=== PATIENT | female | born 1990 | race Caucasian/White ===

== ENCOUNTER 2017-10-07 15:40 | Emergency (ER) | payer OTHER ==
[2017-10-07 15:53] VITALS: BP 113/60
[2017-10-07] MEDS ORDERED: Ondansetron ODT TAB* 4 MG SL ONE (16:30)
--- NOTE | 2017-10-07 16:43 | UC ---
Respiratory Complaint HPI - HPI Summary HPI Summary: Patient is an otherwise healthy 27-year-old female presenting to the ED with chief complaint of cough and congestion 1 week. She also endorses some nausea , without vomiting 2 days. Endorses fever, but has not taken her temperature. Denies any sweats or chills. Denies any weakness. She takes no medications on a daily basis and has not taken anything [id number] for relief. Symptoms are aggravated with nothing and relieved with nothing. She has early satiety and decreased by mouth intake. - History of Current Complaint Chief Complaint: UCRespiratory Stated Complaint: RESP COMPLAINT Time Seen by Provider: 10/07/17 16:02 Hx Obtained From: Patient Hx Last Menstrual Period: Sep 09, 2017 ?: No Onset/Duration: Sudden Onset Timing: Constant Severity Initially: Mild Severity Currently: Mild Pain Intensity: 0 Pain Scale Used: 0-10 Numeric Character: Cough: Nonproductive Associated Signs And Symptoms: Positive: Negative - Risk Factors Pulmonary Embolism Risk Factors: Negative Cardiac Risk Factors: Negative Pseudomonas Risk Factors: Negative Tuberculosis Risk Factors: Negative - Allergies/Home Medications Allergies/Adverse Reactions: Allergies Allergy/AdvReac Type Severity Reaction Status Date / Time No Known Allergies Allergy Verified 10/07/17 15:53 Home Medications: Home Medications Venlafaxine EXT RELEASE CAP* [Effexor Xr CAP*] 1 tab PO DAILY 10/07/17 [History Confirmed 10/07/17] PMH/Surg Hx/FS Hx/Imm Hx Previously Healthy: Yes - Surgical History Surgical History: Yes Surgery Procedure, Year, and Place: COSMETIC EAR SURGERY FROM A DOG BITE - Family History Known Family History: Positive: None - noncontributory - Social History Occupation: Employed Full-time Lives: With Family Alcohol Use: Occasionally Alcohol Amount: Glass of wine occassionally Substance Use Type: None Substance Use Comment - Amount & Last Used: Last used substances 2012 Smoking Status (MU): Current Every Day Smoker Type: Cigarettes Amount Used/How Often: /4 PPD Household Exposure Type: Cigarettes - Immunization History Most Recent Influenza Vaccination: 03/2014 Most Recent Tetanus Shot: 02/20/14 Most Recent Pneumonia Vaccination: n/a Review of Systems Constitutional: Fever Skin: Negative ENT: Negative Respiratory: Cough Cardiovascular: Negative Gastrointestinal: Nausea Motor: Negative Neurovascular: Negative Musculoskeletal: Negative Neurological: Negative Psychological: Negative Is Patient Immunocompromised?: No All Other Systems Reviewed And Are Negative: Yes Physical Exam Triage Information Reviewed: Yes Appearance: Well-Appearing, Well-Nourished Vital Signs: Initial Vital Signs Temp 97.4 F 10/07/17 15:50 Pulse 56 10/07/17 15:50 Resp 18 10/07/17 15:50 BP 113/60 10/07/17 15:50 Pulse Ox 96 10/07/17 15:50 Vital Signs Reviewed: Yes Eye Exam: Normal Eyes: Positive: Conjunctiva Clear ENT Exam: Normal ENT: Positive: Normal ENT inspection Neck exam: Normal Neck: Positive: Supple, No Lymphadenopathy Respiratory: Positive: Wheezing Cardiovascular Exam: Normal Cardiovascular: Positive: RRR Neurological Exam: Normal Neurological: Positive: Alert Psychological: Positive: Normal Response To Family Skin Exam: Normal UC Diagnostic Evaluation - Laboratory O2 Sat by Pulse Oximetry: 96 Respiratory Course/Dx - Course Course Of Treatment: During the course of treatment, the patient is evaluated for cough and congestion and nausea without vomiting. She endorses a probable fever, but has not taken her temperature. Denies any sweats or chills. Influenza swab obtained. Chest x-ray obtained. Lungs have bilateral wheezes, but however patient is a smoker. She denies any shortness of breath. Xray with no acute findings. Flu negative. She is given zofran with relief. Patient is prescribed Zofran and note given for work. - Differential Dx/Diagnosis Provider Diagnoses: Nausea, URI Discharge - Discharge Plan Condition: Stable Disposition: HOME Prescriptions: Ondansetron ODT TAB* [Zofran 4 MG Odt TAB*] 4 mg PO Q6H PRN #12 tab.odt MDD 4 PRN Reason: Nausea Patient Education Materials: Upper Respiratory Infection (ED) Forms: *Work Release Referrals: Royce DUFFY,Stephanie Delarosa [Primary Care Provider] - Additional Instructions: Zofran for any nausea and vomiting
--- NOTE | 2017-10-07 17:01 | RAD ---
INDICATION: Cough. COMPARISON: There are no prior studies available for comparison. TECHNIQUE: Dual-energy PA and lateral views of the chest were obtained. FINDINGS: The heart is within normal limits in size. Mediastinal and hilar contours appear within normal limits. The lungs are clear. No pleural effusion is present. IMPRESSION: NO EVIDENCE FOR ACTIVE CARDIOPULMONARY DISEASE.
== END 2017-10-07 17:11 | disposition home or self-care (01) ==
LOC: UCEAST 15:40
DX: J06.9 Acute upper respiratory infection, unspecified (principal); R11.0 Nausea; F17.210 Nicotine dependence, cigarettes, uncomplicated
CPT/HCPCS: 71046; 87502; 99212; A9270-GY; G0463

== ENCOUNTER 2017-11-05 11:15 | Emergency (ER) | payer OTHER ==
--- NOTE | 2017-11-05 13:38 | UC ---
Upper Extremity HPI - HPI Summary HPI Summary: Patient presents with pain in her left arm that she noticed this morning after waking up. States she slept in an odd position with her left arm extended hanging off the bed. Is here requesting note for work. She denies any trauma or injury. She is also requesting a muscle relaxer. States she normally gets Soma from her PCP but her PCP is away for the next week and she is out of meds. Upon further questioning it is discovered that she had a history of superficial venous thrombosis to the left arm in 2012. She has a Mirena IUD and is a current smoker. Positive family history for DVT. She denies shortness of breath, chest pain, fever. No swelling in the arm. - History of Current Complaint Chief Complaint: UCUpperExtremity Stated Complaint: ARM PAIN Time Seen by Provider: 11/05/17 12:57 Hx Obtained From: Patient Hx Last Menstrual Period: october 07 or so Onset/Duration: Sudden Onset, Lasting Hours, Still Present Severity Initially: Moderate Severity Currently: Moderate Pain Intensity: 8 Pain Scale Used: 0-10 Numeric Location Of Pain: Is Discrete @ - LEFT ARM Character: Sharp Aggravating Factor(s): Movement Alleviating Factor(s): Nothing Associated Signs And Symptoms: Positive: Bruising. Negative: Swelling, Redness Related History: Dominant Hand Right - Allergies/Home Medications Allergies/Adverse Reactions: Allergies Allergy/AdvReac Type Severity Reaction Status Date / Time No Known Allergies Allergy Verified 11/05/17 11:31 Home Medications: Home Medications Buprenorphine HCl/Naloxone HCl [Suboxone 8 mg-2 mg Sl Film] 1 mis SL BID [History Confirmed 11/05/17] PMH/Surg Hx/FS Hx/Imm Hx Other Cardiovascular History: LUE SPFL VENOUS THROMBOSIS - 11/2012 Other History Of: Hepatitis C - Surgical History Surgical History: Yes Surgery Procedure, Year, and Place: COSMETIC EAR SURGERY FROM A DOG BITE - Family History Known Family History: Positive: Blood Disorder - CLOTTING D/O - MOM AND GRANDMA - Social History Alcohol Use: Occasionally Alcohol Amount: Glass of wine occassionally Substance Use Type: None Substance Use Comment - Amount & Last Used: Last used substances 2012 Smoking Status (MU): Current Every Day Smoker Type: Cigarettes Amount Used/How Often: / PPD Household Exposure Type: Cigarettes - Immunization History Most Recent Influenza Vaccination: 03/2014 Most Recent Tetanus Shot: 02/20/14 Most Recent Pneumonia Vaccination: n/a Review of Systems Constitutional: Negative Skin: Negative Respiratory: Negative Cardiovascular: Negative Gastrointestinal: Negative Musculoskeletal: Arthralgia, Decreased ROM, Myalgia All Other Systems Reviewed And Are Negative: Yes Physical Exam Triage Information Reviewed: Yes Appearance: Well-Appearing, No Pain Distress, Well-Nourished Vital Signs: Initial Vital Signs Temp 97.5 F 11/05/17 11:25 Pulse 87 11/05/17 11:25 Resp 16 11/05/17 11:25 BP 108/70 11/05/17 11:25 Pulse Ox 97 11/05/17 11:25 Vital Signs Reviewed: Yes Eyes: Positive: Conjunctiva Clear ENT: Positive: Hearing grossly normal Neck: Positive: Supple Respiratory: Positive: No respiratory distress, No accessory muscle use Cardiovascular: Positive: Pulses Normal Abdomen Description: Positive: Soft Musculoskeletal: Positive: No Edema, ROM Limited @ - LEFT ELBOW, Other: - TTP LUE ANTERIORLY FROM MID UPPER ARM TO MID FOREARM Neurological: Positive: Alert Psychological: Positive: Age Appropriate Behavior Skin: Negative: rashes Upper Extremity Course/Dx - Course Course Of Treatment: GIVEN PT'S H/O SPFL THROMBOSIS IN LUE, CURRENT HORMONAL CONTRACEPTION, SMOKING AND FAMILY H/O CLOTTING - OFFERED LUE US TO R/O RECURRENT THROMBOSIS. PT DECLINES, STATING SHE WOULD RATHER GO HOME AND SEE HOW IT FEELS TOMORROW. WAS HERE FOR A WORK NOTE. ADVISED THAT SHE COULD BE RISKING WORSENING OF HER CONDITION THAT COULD POSE A THREAT TO HER LIFE, HEALTH AND MEDICAL SAFETY. SHE VERBALIZES UNDERSTANDING AND CONTINUES TO DECLINE IMAGING. SHE THINKS SHE PULLED A MUSCLE AND IS REQUESTING A MUSLCE RELAXER. STATES SHE USUALLY GETS SOMA FROM HER PCP BUT SHE IS AWAY FOR A WEEK AND IS OUT OF MEDS. I ADVISED HER THAT I DON'T PRESCRIBE SOMA BUT COULD GIVE HER FLEXERIL UNTIL HER PCP RETURNS. - Differential Dx/Diagnosis Provider Diagnoses: LEFT UPPER EXTREMITY PAIN Discharge - Sign-Out/Discharge Documenting (check all that apply): Discharge - Discharge Plan Condition: Stable Disposition: HOME Prescriptions: Cyclobenzaprine TAB* [Flexeril TAB*] 10 mg PO BID PRN #30 tab PRN Reason: Pain Patient Education Materials: Arm Pain (ED) Forms: *Work Release Referrals: Royce DUFFY,Stephanie Delarosa [Primary Care Provider] - As Soon As Possible Additional Instructions: Given your sudden onset of left arm pain and in light of your history of left upper extremity DVT, family history of DVT, hormonal contraception and smoking status I would recommend left upper extremity ultrasound to rule out recurrent thrombosis. YOU HAVE DECLINED TO HAVE AN ULTRASOUND TODAY. BE ADVISED THAT BY NOT ADEQUATELY EVALUATING YOUR SYMPTOMS YOU COULD BE RISKING WORSENING OF YOUR CONDITION THAT COULD POSE A THREAT TO YOUR LIFE, HEALTH AND MEDICAL SAFETY. Go directly to the [facility] ED if you develop worsening pain, swelling, redness, fever, shortness of breath, chest pain or any other concerning symptoms. - Billing Disposition and Condition Condition: STABLE Disposition: HOME
[2017-11-05 14:02] VITALS: BP 117/67
== END 2017-11-05 13:45 | disposition home or self-care (01) ==
LOC: UCEAST 11:15
DX: M79.602 Pain in left arm (principal); Z86.718 Personal history of other venous thrombosis and embolism; Z97.5 Presence of (intrauterine) contraceptive device; F17.210 Nicotine dependence, cigarettes, uncomplicated
CPT/HCPCS: 99212; G0463

== ENCOUNTER 2018-03-12 15:32 | Emergency (ER) | payer MEDICAID ==
[2018-03-12 15:45] VITALS: BP 115/72
--- NOTE | 2018-03-12 16:59 | UC ---
Complaint Female HPI - HPI Summary HPI Summary: Patient states this month she has had 2 menstrual periods, prior to that she had amenorrhea because she had the mirena implanted for the past 3 days. Patient states she tried to feel the threads of the mirena but there was "a mass ' in her vagina in the way, she thought she felt her cervix was too low. Patient denies traumatic child or incontinence, denies dysuria or frequency. She states she has HPV and is due soon for a colposcopy. Also she states she has been feeling a little nauseous for the past week and has vomited small amounts of food or has dry heaving usually in the afternoons. - History Of Current Complaint Chief Complaint: UCGeneralIllness Stated Complaint: NAUSEA,VAG COMPLAINT,BLEEDING Time Seen by Provider: 03/12/18 15:50 Hx Obtained From: Patient Hx Last Menstrual Period: october 07 or so ?: No Onset/Duration: Sudden Onset, Lasting Weeks Timing: Intermittent, Lasting Minutes Severity Initially: Mild Severity Currently: Mild Pain Intensity: 0 Character: Not Applicable Aggravating Factor(s): Nothing Alleviating Factor(s): Nothing Associated Signs And Symptoms: Positive: Vaginal Bleeding/Discharge, Nausea, Vomiting(# Of Episodes =) - Risk Factors Ectopic Risk Factor: Maternal Age ^ 30, IUD Use Ovarian Torsion Risk Factor: Negative - Allergies/Home Medications Allergies/Adverse Reactions: Allergies Allergy/AdvReac Type Severity Reaction Status Date / Time No Known Allergies Allergy Verified 03/12/18 15:46 Home Medications: Home Medications Sofosbuvir/Velpatas/Voxilaprev [Vosevi 400-100-100 mg Tablet] 1 each PO DAILY [History Confirmed 03/12/18] PMH/Surg Hx/FS Hx/Imm Hx Previously Healthy: Yes Endocrine History: Hypothyroidism Psychological History: Depression Other History Of: Hepatitis C - Surgical History Surgical History: Yes Surgery Procedure, Year, and Place: COSMETIC EAR SURGERY FROM A DOG BITE - Family History Known Family History: Positive: Blood Disorder - CLOTTING D/O - MOM AND GRANDMA - Social History Alcohol Use: Occasionally Alcohol Amount: Glass of wine occassionally Substance Use Type: None Substance Use Comment - Amount & Last Used: Last used substances 2012 Smoking Status (MU): Current Every Day Smoker Type: Cigarettes Amount Used/How Often: 1/4 PPD Household Exposure Type: Cigarettes - Immunization History Most Recent Influenza Vaccination: 03/2014 Most Recent Tetanus Shot: 02/20/14 Most Recent Pneumonia Vaccination: n/a Review of Systems Constitutional: Negative Gastrointestinal: Nausea Genitourinary: Abnormal Bleeding All Other Systems Reviewed And Are Negative: Yes Physical Exam Triage Information Reviewed: Yes Appearance: Well-Appearing, No Pain Distress, Well-Nourished Vital Signs: Initial Vital Signs Temp 98.1 F 03/12/18 15:40 Pulse 73 03/12/18 15:40 Resp 16 03/12/18 15:40 BP 115/72 03/12/18 15:40 Pulse Ox 99 03/12/18 15:40 Vital Signs Reviewed: Yes Eyes: Positive: Conjunctiva Clear ENT: Positive: Hearing grossly normal Neck exam: Normal Neck: Positive: Supple Respiratory: Positive: Chest non-tender, No respiratory distress, No accessory muscle use - occasional inspiratory wheezing b/l , non consistent during auscultation, Other: Cardiovascular: Positive: RRR, No Murmur, Pulses Normal Abdomen Description: Positive: Nontender, No Organomegaly, Soft Pelvic Exam: Positive: External Exam Normal, Speculum Exam Normal, Bimanual Exam Normal, No Cerv. Motion Tender, No Masses, Other - cannot visualize IUD threads Musculoskeletal: Positive: Strength Intact, ROM Intact, No Edema Complaint Female Dx - Course Course Of Treatment: test is negative, pelvic exam was normal. IUD threads could not be visualized, advised to have pelvic sonogram to find IUD and f/u with PILOT MANAGER. Patient with occasional nausea, continues to drink PO fluids on demand, f/u with PCP if nausea worsens. Counselling regarding smoking cessation - Differential Dx/Diagnosis Provider Diagnoses: dysfunctional uterine bleeding. Nausea. Tobacco smoking Discharge - Sign-Out/Discharge Documenting (check all that apply): Patient Departure - Discharge Plan Condition: Good Disposition: HOME Patient Education Materials: Dysfunctional Uterine Bleeding (ED) Referrals: Royce DUFFY,Stephanie Delarosa [Primary Care Provider] - Additional Instructions: please return to your mobile home mechanic to have a pelvic sonogram and check for the presence of the IUD in your uterus. If nausea becomes worse and you cannot retain liquids, or if you develop pelvic pain, chills or fevr, please go to the ER - Billing Disposition and Condition Condition: GOOD Disposition: Home
== END 2018-03-12 16:59 | disposition home or self-care (01) ==
LOC: UCEAST 15:32
DX: N93.8 Other specified abnormal uterine and vaginal bleeding (principal); R11.0 Nausea; F17.210 Nicotine dependence, cigarettes, uncomplicated
CPT/HCPCS: 81003; 84702; 99201; G0463

== ENCOUNTER 2019-08-16 17:54 | Emergency (ER) | payer BC, OTHER ==
[2019-08-16 18:06] VITALS: BP 110/63
--- NOTE | 2019-08-16 19:57 | UC ---
FLU HPI - HPI Summary HPI Summary: 29-year-old female presents with 3 day history of fever, chills, general malaise , fatigue, body aches, nasal congestion, sore throat, and occasional nonproductive cough. She did not get her flu vaccine this season. Denies ear pain, dysphagia, chest pain, shortness of breath, abdominal pain, nausea, vomiting, or diarrhea. - History of Current Complaint Chief Complaint: UCRespiratory Stated Complaint: RESP COMPLAINT Time Seen by Provider: 08/16/19 19:44 Hx Obtained From: Patient Hx Last Menstrual Period: Pain Intensity: 4 - Allergy/Home Medications Allergies/Adverse Reactions: Allergies Allergy/AdvReac Type Severity Reaction Status Date / Time No Known Allergies Allergy Verified 08/16/19 18:07 Home Medications: Home Medications medroxyPROGESTERone ACETATE* [DEPO-Provera] 150 mg IM SEE INSTRUCTIONS 08/16/19 [History Confirmed 08/16/19] PMH/Surg Hx/FS Hx/Imm Hx Endocrine History: Thyroid Disease Psychological History: Depression Other History Of: Hepatitis C - Surgical History Surgical History: Yes Surgery Procedure, Year, and Place: COSMETIC EAR SURGERY FROM A DOG BITE - Family History Known Family History: Positive: Blood Disorder - CLOTTING D/O - MOM AND GRANDMA - Social History Occupation: Employed Full-time Lives: With Family Alcohol Use: Weekly Alcohol Amount: Glass of wine occassionally Substance Use Type: None Substance Use Comment - Amount & Last Used: Last used substances 2012 Smoking Status (MU): Light Every Day Tobacco Smoker Type: Cigarettes Amount Used/How Often: 1/4 PPD Household Exposure Type: Cigarettes - Immunization History Most Recent Influenza Vaccination: 03/2014 Most Recent Tetanus Shot: 02/20/14 Most Recent Pneumonia Vaccination: n/a Review of Systems All Other Systems Reviewed And Are Negative: Yes Constitutional: Positive: Fever, Chills, Fatigue Skin: Negative: Rash Eyes: Negative: Drainage, Eye Redness ENT: Positive: Sore Throat, Nasal Discharge, Sinus Congestion. Negative: Ear Ache, Sinus Pain/Tenderness Respiratory: Positive: Cough. Negative: Shortness Of Breath Cardiovascular: Negative: Palpitations, Chest Pain Gastrointestinal: Negative: Abdominal Pain, Vomiting, Diarrhea, Nausea Genitourinary: Positive: Negative Musculoskeletal: Positive: Myalgia Is Patient Immunocompromised?: No Physical Exam - Summary Physical Exam Summary: GENERAL APPEARANCE: Well developed, well nourished, alert and cooperative, and appears to be in no acute distress. EYES: Conjunctiva clear. No drainage. EARS: External auditory canals and tympanic membranes clear, hearing grossly intact. NOSE: Moderate nasal congestion. Clear nasal discharge. THROAT: Pharyngeal erythema. No tonsilar inflammation, swelling, exudate, or lesions. Uvula midline. NECK: Neck supple, non-tender without lymphadenopathy. CARDIAC: Normal S1 and S2. No S3, S4 or murmurs. Rhythm is regular. There is no peripheral edema, cyanosis or pallor. Extremities are warm and well perfused. Capillary refill is less than 2 seconds. Peripheral pulses intact. LUNGS: Clear to auscultation without rales, rhonchi, wheezing or diminished breath sounds. Nonproductive cough. ABDOMEN: Positive bowel sounds. Soft, nondistended, nontender. No guarding or rebound. No masses or hepatosplenomegally. MUSKULOSKELETAL: ROM intact to all extremities. No joint erythema or tenderness. Normal muscular development. Normal gait. SKIN: Skin normal color, texture and turgor with no lesions or eruptions. Triage Information Reviewed: Yes Vital Signs: Initial Vital Signs Temp 100.3 F 08/16/19 18:02 Pulse 73 08/16/19 18:02 Resp 18 08/16/19 18:02 BP 110/63 08/16/19 18: Pulse Ox 100 08/16/19 18:02 Vital Signs Reviewed: Yes Flu Course/Dx - Course Course Of Treatment: 29-year-old female presents with 3 day history of fever, chills, general malaise , fatigue, body aches, nasal congestion, sore throat, and occasional nonproductive cough. She did not get her flu vaccine this season. Denies ear pain, dysphagia, chest pain, shortness of breath, abdominal pain, nausea, vomiting, or diarrhea. Patient had a mildly elevated temperature 100.3 F. Vital signs were stable. Patient had mild to moderate nasal congestion, clear nasal discharge, normal TMs, pharyngeal erythema without tonsillar swelling or exudate, no cervical lymphadenopathy, clear bilateral breath sounds, nonproductive cough, and otherwise unremarkable exam. Rapid flu test was positive for influenza B. Results reviewed with the patient. Recommending symptomatic treatment at this time. She is to follow-up with her primary care provider in 7 days if symptoms are not improving. Anticipatory guidance and warning symptoms were reviewed with the patient. Verbalizes understanding and agrees with plan of care. - Differential Dx/Diagnosis Differential Diagnosis/HQI/PQRI: Bronchitis, Influenza, Pneumonia, Upper Respiratory Infection Provider Diagnosis: Influenza B Discharge ED - Sign-Out/Discharge Documenting (check all that apply): Patient Departure All imaging exams completed and their final reports reviewed: No Studies - Discharge Plan Condition: Stable Disposition: HOME Patient Education Materials: Influenza (ED) Referrals: Stephanie Crane PA [Primary Care Provider] - 7 Days Additional Instructions: Your flu test in the clinic today was positive for influenza B. Get plenty of rest. Drink plenty of fluids to avoid dehydration especially if you are running any fever. Take over the counter acetaminophen (Tylenol) or ibuprofen (Advil, Motrin) according to directions as needed for pain or fever. Use salt water gargles several times a day if you have a sore throat. You may also use Chloraseptic spray or Cepacol lonzenges according to directions which contain a numbing medication and can provide some temporary relief from your sore throat. Follow up with your primary care provider in 7 days if symptoms persist. Seek immediate medical attention in the emergency room if you have fever greater than 100.5 F despite taking acetaminophen or ibuprofen, have chest pain , difficulty breathing, are unable to swallow, or have any worsening of symptoms. - Billing Disposition and Condition Condition: STABLE Disposition: Home
[2019-08-16 20:16] LABS: Influenza B Molecular POSITIVE (Negative)
== END 2019-08-16 20:40 | disposition home or self-care (01) ==
LOC: UCEAST 17:54
DX: J10.1 Influenza due to other identified influenza virus with other respiratory manifestations (principal); F17.210 Nicotine dependence, cigarettes, uncomplicated
CPT/HCPCS: 99211; G0463